=== PATIENT | female | born 1995 | race Caucasian/White ===

== ENCOUNTER 2018-08-14 12:40 | Emergency (ER) | payer SELFPAY ==
[2018-08-14 13:29] LABS: Absolute Lymphocytes (CBC) 2.1 K/uL (0.7-4.9); Absolute Monocytes 1.3 K/uL (0.1-1.3); Basophils % 0.2 % (0-1.3); Eosinophils % 0.1 % (0-4.4); Hematocrit 45.8 % (36.0-45.0); Lymphocytes % 18.8 % (15.3-44.8); MPV 10.2 fL (7.6-11.3); Protime INR 1.05; RBC Red Blood Cell Count 5.13 M/uL (3.86-4.86)
[2018-08-14] MEDS ORDERED: NA CHLORIDE 0.9% 1,000 ML ONE ×2 (13:34→14:21)
--- NOTE | 2018-08-14 13:44 | RAD REPORT ---
EXAM DESCRIPTION: Patsy Single View08/14/2018 1:38 pm CLINICAL HISTORY: Cough COMPARISON: none FINDINGS: The lungs appear clear of acute infiltrate. The heart is normal size IMPRESSION: No acute abnormalities displayed
[2018-08-14 13:51] LABS: ALT/SGPT 114 U/L (12-78); AST/SGOT 65 U/L (15-37); Albumin 4.4 g/dL (3.4-5.0); Alkaline Phosphatase 94 U/L (45-117); BUN Blood Urea Nitrogen 14 mg/dL (7-18); Bicarbonate 24 mmol/L (21-32); Bilirubin Direct < 0.1 mg/dL (0-0.2); Bilirubin Total 0.2 mg/dL (0.2-1.0); Glucose Level 94 mg/dL (74-106); Lipase 123 U/L (73-393); Magnesium 2.2 mg/dL (1.8-2.4); NT PRO-BNP 89 pg/mL (<125); Potassium 3.7 mmol/L (3.5-5.1); Protein, Total 8.3 g/dL (6.4-8.2); Sodium Level 138 mmol/L (136-145); Troponin (Emerg Dept Use Only) < 0.02 ng/mL (0.0-0.045)
--- NOTE | 2018-08-14 14:09 | RAD REPORT ---
EXAM DESCRIPTION: CT - Head Brain Wo Cont - 08/14/2018 1:59 pm CLINICAL HISTORY: Numbness COMPARISON: None. TECHNIQUE: Computed axial tomography of the head was obtained. IV contrast was not requested. All CT scans are performed using dose optimization technique as appropriate and may include automated exposure control or mA/KV adjustment according to patient size. FINDINGS: An intracranial bleed is not seen . The ventricles are normal in caliber. No extra-axial fluid collection is noted. Fluid within the sinuses/ mastoids is not seen. IMPRESSION: No acute intracranial abnormality is seen. If patient's symptoms persist MRI of the bra in would be recommended.
[2018-08-14] MEDS ORDERED: FOLIC ACID 5 MG/ML VIAL ONE (14:22)
--- NOTE | 2018-08-14 14:51 | RAD REPORT ---
EXAM DESCRIPTION: MRI - Brain Wo Cont - 08/14/2018 2:33 pm CLINICAL HISTORY: Headache and dizziness COMPARISON: August 14, 2018 cat scan TECHNIQUE: Axial, sagittal, and coronal magnetic images of the brain were obtained. Contrast was not requested FINDINGS: No abnormal signal is present within the brain. Diffusion-weighted/ADC mapping does not reveal evidence of acute infarction. The ventricles are normal caliber. An extra-axial fluid collection is not present The sinuses and mastoids are clear. IMPRESSION: Unremarkable unenhanced brain MRI
--- NOTE | 2018-08-14 14:53 | RAD REPORT ---
EXAM DESCRIPTION: MRI - MRA Head Wo Cont - 08/14/2018 2:33 pm CLINICAL HISTORY: Syncope and headaches COMPARISON: None. TECHNIQUE: Magnetic resonance angiogram was performed. 3D MIPS reconstruction performed FINDINGS: The anterior cerebral, middle cerebral, posterior cerebral, distal internal carotid and ba silar arteries do not demonstrate a significant stenosis. origin left posterior cerebral artery An aneurysm is not displayed. IMPRESSION: Unremarkable MRA brain.
--- NOTE | 2018-08-14 14:56 | EDPHYS ---
Physician Documentation [facility] Name: Heather Mueller Age: 22 yrs Sex: Female : 1995 Arrival Date: 08/14/2018 Time: 12:46 Bed 6 Private MD: AUTUMN Physician Chato Faye HPI: 08/14 13:51 This 22 yrs old Female presents to ER via Ambulatory with complaints of roderick Facial numbness, Numbness Of Arm. 13:51 The patient or guardian complains of. roderick 13:51 The patient complains of pain to the top of head, forehead, left temporal area and roderick right temporal area. The patient describes the headache as aching. Onset: The symptoms/episode began/occurred last night. The patient presents with a history of heart racing, heart skipping beats. Context: The symptoms occur at rest. Onset: The symptoms/episode began/occurred yesterday. The patient's problem is reported as dysphasia. Onset: The symptoms/episode began/occurred this morning. STAFF THERAPIST: 12:53 LMP 07/20/2018 hj Historical: - Allergies: 12:53 No Known Allergies; hj - PMHx: 12:53 None; hj - PSHx: 12:53 arm surgery; ; hj - Immunization history:: Adult Immunizations up to date. - Social history:: Smoking status: Patient uses tobacco products, smokes one pack cigarettes per day. Patient uses alcohol, occasionally. Patient/guardian denies using street drugs, IV drugs. - Ebola Screening: : No symptoms or risks identified at this time. - Family history:: not pertinent. ROS: 13:51 Constitutional: Negative for fever, chills, and weight loss, Eyes: Negative for injury, roderick pain, redness, and discharge, ENT: Negative for injury, pain, and discharge, Neck: Negative for injury, pain, and swelling, Respiratory: Negative for shortness of breath, cough, wheezing, and pleuritic chest pain, Abdomen/GI: Negative for abdominal pain, nausea, vomiting, diarrhea, and constipation, Back: Negative for injury and pain, : Negative for injury, bleeding, discharge, and swelling, MS/Extremity: Negative for injury and deformity, Skin: Negative for injury, rash, and discoloration, Psych: Negative for depression, anxiety, suicide ideation, homicidal ideation, and hallucinations, Allergy/Immunology: Negative for hives, rash, and allergies, Endocrine: Negative for neck swelling, polydipsia, polyuria, polyphagia, and marked weight changes. 13:51 Cardiovascular: Positive for palpitations. 13:51 Neuro: Positive for dizziness, headache, speech changes. Exam: 13:51 Constitutional: This is a well developed, well nourished patient who is awake, alert, roderick and in no acute distress. Head/Face: Normocephalic, atraumatic. Eyes: Pupils equal round and reactive to light, extra-ocular motions intact. Lids and lashes normal. Conjunctiva and sclera are non-icteric and not injected. Cornea within normal limits. Periorbital areas with no swelling, redness, or edema. ENT: Nares patent. No nasal discharge, no septal abnormalities noted. Tympanic membranes are normal and external auditory canals are clear. Oropharynx with no redness, swelling, or masses, exudates, or evidence of obstruction, uvula midline. Mucous membranes moist. Neck: Trachea midline, no thyromegaly or masses palpated, and no cervical lymphadenopathy. Supple, full range of motion without nuchal rigidity, or vertebral point tenderness. No Meningismus. Chest/axilla: Normal chest wall appearance and motion. Nontender with no deformity. No lesions are appreciated. Cardiovascular: Regular rate and rhythm with a normal S1 and S2. No gallops, murmurs, or rubs. Normal PMI, no JVD. No pulse deficits. Respiratory: Lungs have equal breath sounds bilaterally, clear to auscultation and percussion. No rales, rhonchi or wheezes noted. No increased work of breathing, no retractions or nasal flaring. Abdomen/GI: Soft, non-tender, with normal bowel sounds. No distension or tympany. No guarding or rebound. No evidence of tenderness throughout. Back: No spinal tenderness. No costovertebral tenderness. Full range of motion. Female : Normal external genitalia. Skin: Warm, dry with normal turgor. Normal color with no rashes, no lesions, and no evidence of cellulitis. MS/ Extremity: Pulses equal, no cyanosis. Neurovascular intact. Full, normal range of motion. Neuro: Awake and alert, GCS 15, oriented to person, place, time, and situation. Cranial nerves II-XII grossly intact. Motor strength 5/5 in all extremities. Sensory grossly intact. Cerebellar exam normal. Normal gait. Psych: Awake, alert, with orientation to person, place and time. Behavior, mood, and affect are within normal limits. 13:53 Radiologist reports: neg, see report roderick 14:36 Cardiovascular: Rate: normal, Rhythm: regular, Pulses: no pulse deficits are roderick appreciated, Heart sounds: normal, Edema: is not appreciated, JVD: is not appreciated. 14:36 Musculoskeletal/extremity: DVT Exam: No signs of deep vein thrombosis. no pain, no swelling, no tenderness, negative Homans' sign noted on exam, no appreciated bluish discoloration, no erythema, no increased warmth. Vital Signs: 12:53 BP 151 / 87; Pulse 133; Resp 18; Temp 99.3(O); Pulse Ox 98% on R/A; Weight 72.57 kg; hj Height 5 ft. 5 in. (165.10 cm); Pain 5/10; 13:37 BP 134 / 91; Pulse 128 MON; Resp 22; Pulse Ox 99% on R/A; sv 14:38 BP 136 / 87; Pulse 119; Resp 20; Temp 97.8(TE); Pulse Ox 100% on R/A; mh5 15:27 BP 130 / 76; Pulse 99; Resp 18; Temp 98; Pulse Ox 99% ; rv 12:53 Body Mass Index 26.62 (72.57 kg, 165.10 cm) hj 13:37 Sinus tachycardia sv MDM: 12:57 Patient medically screened. [facility] 13:53 Data reviewed: vital signs, nurses notes, lab test result(s), EKG, radiologic studies, [facility] CT scan, MRI, plain films. 08/14 13:03 Order name: Basic Metabolic Panel; Complete Time: 14:35 [facility] 08/14 13:03 Order name: CBC with Diff; Complete Time: 14:35 [facility] 08/14 14:45 Interpretation: MCV 89.3. [facility] 08/14 13:03 Order name: LFT's; Complete Time: 14:35 [facility] 08/14 13:03 Order name: Magnesium; Complete Time: 14:35 [facility] 08/14 13:03 Order name: NT PRO-BNP; Complete Time: 14:35 [facility] 08/14 13:03 Order name: PT-INR; Complete Time: 14:35 [facility] 08/14 13:03 Order name: Troponin (emerg Dept Use Only); Complete Time: 14:35 [facility] 08/14 13:03 Order name: XRAY Chest (1 view); Complete Time: 14:35 [facility] 08/14 13:03 Order name: Lipase; Complete Time: 14:35 [facility] 08/14 13:03 Order name: CT Head Brain wo Cont [facility] 08/14 13:03 Order name: Urine Drug Screen [facility] 08/14 13:18 Order name: Glucose, Ancillary Testing; Complete Time: 14:35 EDMS 08/14 15:14 Order name: Urine Dipstick--Ancillary (enter results) 08/14 15:14 Order name: Urine --Ancillary (enter results) 08/14 13:03 Order name: EKG; Complete Time: 13:06 [facility] 08/14 13:03 Order name: Cardiac monitoring; Complete Time: 13:21 [facility] 08/14 13:03 Order name: EKG - Nurse/Tech; Complete Time: 13:21 [facility] 08/14 13:03 Order name: IV Saline Lock; Complete Time: 13:21 [facility] 08/14 13:03 Order name: Labs collected and sent; Complete Time: 13:21 [facility] 08/14 13:03 Order name: O2 Per Protocol; Complete Time: 13:21 [facility] 08/14 13:03 Order name: O2 Sat Monitoring; Complete Time: 13:21 [facility] 08/14 14:08 Order name: Brain Wo Cont; Complete Time: 14:54 EDMS 08/14 14:12 Order name: MRA Head Wo Cont; Complete Time: 14:54 EDMS 08/14 14:23 Order name: CT; Complete Time: 14:35 EDMS Administered Medications: 13:21 Drug: NS 0.9% 1000 ml Route: IV; Rate: 1 bolus; Site: left antecubital; sv 14:48 Follow up: Response: No adverse reaction; IV Status: Completed infusion; IV Intake: sv 1000ml 14:48 Drug: NS 0.9% 1000 ml Route: IV; Rate: 1 bolus; Site: right antecubital; sv 15:31 Follow up: IV Status: Completed infusion rv 14:48 Drug: foLIC Acid 1 mg Route: IVPB; Site: right antecubital; sv 15:30 Follow up: IV Status: Completed infusion rv Point of Care Testing: Blood Glucose: 13:13 Blood Glucose: 95 mg/dL; sv Ranges: Critical Glucose Levels:Adult <50 mg/dl or >400 mg/dl <40 mg/dl or >180 mg/dl Disposition: 08/14/18 14:55 Discharged to Home. Impression: Headache, Weakness, Tachycardia, unspecified. - Condition is Stable. - Discharge Instructions: General Headache Without Cause, Weakness, Weakness, [id number], General Headache Without Cause, [id number], Sinus Tachycardia. - Prescriptions for Folic Acid 1 mg Oral Tablet - take 1 tablet by ORAL route once daily; 30 tablet. - Medication Reconciliation Form, Thank You Letter, Antibiotic Education, Prescription Opioid Use form. - Follow up: Private Physician; When: 2 - 3 days; Reason: Recheck today's complaints, Continuance of care, Re-evaluation by your physician. Follow up: Delmar Prater; When: 2 - 3 days; Reason: Recheck today's complaints, Continuance of care, Re-evaluation by your physician. - Problem is new. - Symptoms have improved. Signatures: Dispatcher [employer] [facility] Jemma Strong, RN RN Chato Taylor MD MD cha Joaquin, Henry, RN RN hj Bryan Whitten RN RN rv Corrections: (The following items were deleted from the chart) 14:08 13:53 MR STROKE PROTOCOL+MRI.RAD.BRZ ordered. [facility] EDAR 14:11 13:53 Head Angio+CT.RAD.BRZ ordered. [facility] EDAR 15:30 14:55 08/14/2018 14:55 Discharged to Home. Impression: Headache; Weakness; Tachycardia, rv unspecified. Condition is Stable. Discharge Instructions: General Headache Without Cause, Weakness, Weakness, Jjjp-[id number], General Headache Without Cause, [id number]-[id number], Sinus Tachycardia. Prescriptions for Folic Acid 1 mg Oral Tablet - take 1 tablet by ORAL route once daily; 30 tablet. and Forms are Medication Reconciliation Form, Thank You Letter, Antibiotic Education, Prescription Opioid Use. Follow up: Private Physician; When: 2 - 3 days; Reason: Recheck today's complaints, Continuance of care, Re-evaluation by your physician. Follow up: Delmar Prater; When: 2 - 3 days; Reason: Recheck today's complaints, Continuance of care, Re-evaluation by your physician. Problem is new. Symptoms have improved. roderick
--- NOTE | 2018-08-14 14:56 | ER ---
Nurse's Notes [facility] Name: Heather Mueller Age: 22 yrs Sex: Female : 1995 Arrival Date: 08/14/2018 Time: 12:46 Bed 6 Private MD: Diagnosis: Headache;Weakness;Tachycardia, unspecified Presentation: 08/14 12:50 Presenting complaint: Patient states: this morning, around 6 am, i started feeling both hj my arms are numb and shaky, both side of my face are numb, denies weakness, when i goggled it im just concern that i might have mini strokes; denies chest pain, reports nausea and abd cramps;. Transition of care: patient was not received from another setting of care. Onset of symptoms was August 14, 2018. Risk Assessment: Do you want to hurt yourself or someone else? Patient reports no desire to harm self or others. Initial Sepsis Screen: Does the patient meet any 2 criteria? No. Patient's initial sepsis screen is negative. Does the patient have a suspected source of infection? No. Patient's initial sepsis screen is negative. Care prior to arrival: None. 12:50 Method Of Arrival: Ambulatory 12:50 Acuity: GALINDO 3 hj 13:10 Acuity: GALINDO 2 sv LINOTYPER: 12:53 LMP 07/20/2018 Historical: - Allergies: 12:53 No Known Allergies; hj - PMHx: 12:53 None; hj - PSHx: 12:53 arm surgery; ; hj - Immunization history:: Adult Immunizations up to date. - Social history:: Smoking status: Patient uses tobacco products, smokes one pack cigarettes per day. Patient uses alcohol, occasionally. Patient/guardian denies using street drugs, IV drugs. - Ebola Screening: : No symptoms or risks identified at this time. - Family history:: not pertinent. Screenin:13 Abuse screen: Denies threats or abuse. Denies injuries from another. Nutritional sv screening: No deficits noted. Tuberculosis screening: No symptoms or risk factors identified. Fall Risk None identified. Assessment: 13:10 General: Appears in no apparent distress. uncomfortable, well developed, Behavior is sv calm, cooperative, appropriate for age. General: Reports drinking about 5-6 big cups of soda a day. Pain: Denies pain. Neuro: Level of Consciousness is awake, alert, obeys commands, Oriented to person, place, time, situation, Moves all extremities. Full function Gait is steady, Speech is normal, Reports dizziness, having a frontal headache last night and took some Tylenol and headache went away. Reports BUE and bilateral cheek, lip, chin numbness this morning at 0600, lasted for about a minute and then went away.. Denies weakness blurred vision numbness headache. Respiratory: Airway is patent Respiratory effort is even, unlabored, Respiratory pattern is regular, symmetrical. Derm: Skin is pink, warm \T\ dry. Musculoskeletal: Range of motion: intact in all extremities. 14:49 Reassessment: Patient appears in no apparent distress at this time. No changes from sv previously documented assessment. Patient and/or family updated on plan of care and expected duration. Pain level reassessed. Patient is alert, oriented x 3, equal unlabored respirations, skin warm/dry/pink. Pt returned from MRI, waiting on results. Vital Signs: 12:53 BP 151 / 87; Pulse 133; Resp 18; Temp 99.3(O); Pulse Ox 98% on R/A; Weight 72.57 kg; hj Height 5 ft. 5 in. (165.10 cm); Pain 5/10; 13:37 BP 134 / 91; Pulse 128 MON; Resp 22; Pulse Ox 99% on R/A; sv 14:38 BP 136 / 87; Pulse 119; Resp 20; Temp 97.8(TE); Pulse Ox 100% on R/A; mh5 15:27 BP 130 / 76; Pulse 99; Resp 18; Temp 98; Pulse Ox 99% ; rv 12:53 Body Mass Index 26.62 (72.57 kg, 165.10 cm) hj 13:37 Sinus tachycardia sv ED Course: 12:46 Patient arrived in ED. mr 12:52 Triage completed. hj 12:55 Arm band placed on left wrist. hj 12:57 Chato Faye MD is Attending Physician. [facility] 13:05 Jemma Strong, TROY is Primary Nurse. sv 13:08 Patient has correct armband on for positive identification. Placed in gown. Bed in low mh5 position. Call light in reach. Side rails up X 1. Warm blanket given. monitoring and evaluation advisor on. Pulse ox on. NIBP on. 13:10 EKG done, by biology specimen technician. reviewed by Chato Faye MD. sm3 13:13 Initial lab(s) drawn, by me, sent to lab. Inserted saline lock: 20 gauge in right sv antecubital area, using aseptic technique. Blood collected. Flushed right antecubital with 5 ml normal saline. 13:21 X-ray completed. Portable x-ray completed in exam room. Patient tolerated procedure jb2 well. 13:23 Awaiting ED provider evaluation. sv 13:39 XRAY Chest (1 view) In Process Unspecified. EDMS 14:27 Brain Wo Cont In Process Unspecified. EDMS 14:27 MRA Head Wo Cont In Process Unspecified. EDMS 14:55 Delmar Prater MD is Referral Physician. roderick 15:03 Report given to Bryan SIMMONS. sv 15:08 Primary Nurse role handed off by Jemma Strong RN sv 15:19 Bryan Whitten, TROY is Primary Nurse. rv 15:28 No provider procedures requiring assistance completed. IV discontinued, intact, rv bleeding controlled, No redness/swelling at site. Pressure dressing applied. Administered Medications: 13:21 Drug: NS 0.9% 1000 ml Route: IV; Rate: 1 bolus; Site: left antecubital; sv 14:48 Follow up: Response: No adverse reaction; IV Status: Completed infusion; IV Intake: sv 1000ml 14:48 Drug: NS 0.9% 1000 ml Route: IV; Rate: 1 bolus; Site: right antecubital; sv 15:31 Follow up: IV Status: Completed infusion rv 14:48 Drug: foLIC Acid 1 mg Route: IVPB; Site: right antecubital; sv 15:30 Follow up: IV Status: Completed infusion rv Point of Care Testing: Blood Glucose: 13:13 Blood Glucose: 95 mg/dL; sv Ranges: Intake: 14:48 IV: 1000ml; Total: 1000ml. sv Outcome: 14:55 Discharge ordered by . roderick 15:29 Discharged to home ambulatory. rv 15:29 Condition: good 15:29 Discharge instructions given to patient, Instructed on discharge instructions, follow up and referral plans. medication usage, Demonstrated understanding of instructions, follow-up care, medications, Prescriptions given X 1. 15:30 Patient left the ED. rv Signatures: Dispatcher [employer] EDMS Ligia Jemma, Chato Pink RN, MD MD cha Rivera, Li mr Jose Eduardo, Papo jb2 Prem Hanks RN RN hj Martinez, Maria [facility] Susan Larsen 3 Bryan Whitten RN RN rv Corrections: (The following items were deleted from the chart) 12:55 12:53 Pulse 133bpm; Resp 18bpm; Pulse Ox 98% RA; Temp 99.3F Oral; 72.57 kg; Height 5 hj ft. 5 in.; BMI: 26.6; Pain 5/10; hj
[2018-08-14 15:45] LABS: Barbiturates NEGATIVE (NEGATIVE); Benzodiazepines NEGATIVE (NEGATIVE); Cocaine NEGATIVE (NEGATIVE); METHAMPHETAM POSITIVE (NEGATIVE); Methadone NEGATIVE (NEGATIVE); Opiates NEGATIVE (NEGATIVE); Phencyclidine NEGATIVE (NEGATIVE); THC Cannibis NEGATIVE (NEGATIVE)
[2018-08-14 15:46] VITALS: BP 130/76; TEMP 98; O2SAT 99
[2018-08-14 15:48] LABS: Urine Blood NEGATIVE (NEG); Urine Glucose NEGATIVE (NEG); Urine Protein NEGATIVE (NEG); Urine pH 5.5 (5.0-7.0)
--- NOTE | 2018-08-15 06:19 | EKG ---
Test Date: 2018-08-14 Test Time: 13:07:29 Order Builder Loader: FERCHO MEASUREMENT RESULTS: Intervals: Rate: 132 MO: 146 QRSD: 70 QT: 306 QTc: 453 [place]: P: 78 MO: 146 QRS: 77 T: 38 INTERPRETIVE STATEMENTS: Sinus tachycardia Right atrial enlargement Borderline ECG No previous ECG available for comparison Electronically Signed On 08-15-18 06:17:25 CDT by Brent Singh
== END 2018-08-14 15:30 | disposition home or self-care (01) ==
LOC: ER 12:40
DX: R53.1 Weakness (principal); R00.0 Tachycardia, unspecified; F17.210 Nicotine dependence, cigarettes, uncomplicated
CPT/HCPCS: 36415; 70450; 70544; 70551; 71045; 80048; 80076; 80307; 81003; 81025; 82962; 83690; 83735; 83880; 84484; 85025; 85610; 93005; 96361; 96365; 99285; J7030

== ENCOUNTER 2018-10-22 01:13 | Emergency (ER) | payer SELFPAY ==
--- NOTE | 2018-10-22 02:16 | ER ---
Nurse's Notes [facility] Name: Heather Mueller Age: 23 yrs Sex: Female : 1995 Arrival Date: 10/22/2018 Time: 01:16 Bed 15 Private MD: Diagnosis: Low back pain Presentation: 10/22 01:24 Presenting complaint: Patient states: Pt complaining of right sided back pain, reports ea it started yesterday morning and has not resolved since. Denies pain with urination. Transition of care: patient was not received from another setting of care. Onset of symptoms was October 22, 2018. Risk Assessment: Do you want to hurt yourself or someone else? Patient reports no desire to harm self or others. Initial Sepsis Screen: Does the patient meet any 2 criteria? No. Patient's initial sepsis screen is negative. Does the patient have a suspected source of infection? No. Patient's initial sepsis screen is negative. Care prior to arrival: None. 01:24 Method Of Arrival: Ambulatory ea 01:24 Acuity: GALINDO 5 ea Triage Assessment: 01:30 General: Appears in no apparent distress. comfortable, Behavior is calm, cooperative, cc3 appropriate for age. Pain: Complains of pain in back Quality of pain is described as aching. EENT: No signs and/or symptoms were reported regarding the EENT system. Neuro: Level of Consciousness is awake, alert, obeys commands, Oriented to person, place, time, situation, Appropriate for age. Cardiovascular: Denies chest pain, Capillary refill < 3 seconds Patient's skin is warm and dry. Respiratory: Airway is patent Respiratory effort is even, unlabored, Respiratory pattern is regular, symmetrical. GI: Abdomen is flat. : No signs and/or symptoms were reported regarding the genitourinary system. Derm: Skin is intact, is healthy with good turgor, Skin is pink, warm \T\ dry. normal. Musculoskeletal: Circulation, motion, and sensation intact. Range of motion: intact in all extremities. ADVANCE AGENT: 01:31 LMP 10/22/2018 ea Historical: - Allergies: 01:30 No Known Allergies; ea - Home Meds: 01:30 None [Active]; ea - PMHx: 01:30 None; ea - PSHx: 01:30 arm surgery; ; ea - Immunization history:: Adult Immunizations up to date. - Social history:: Smoking status: Patient/guardian denies using tobacco. - Ebola Screening: : No symptoms or risks identified at this time. Screenin:28 Abuse screen: Denies threats or abuse. Nutritional screening: No deficits noted. ea Tuberculosis screening: No symptoms or risk factors identified. Fall Risk None identified. Assessment: 01:27 General: see triage assessment. Neuro: Level of Consciousness is awake, alert, obeys cc3 commands, Oriented to person, place, time, situation, Appropriate for age. 02:05 Reassessment: Patient appears in no apparent distress at this time. Patient and/or cc3 family updated on plan of care and expected duration. Pain level reassessed. Patient is alert, oriented x 3, equal unlabored respirations, skin warm/dry/pink. Dr. Bellamy medically screened the patient and discharged her home. Patient left ER vitally stable and ambulatory with her significant other. No valuables left in the patient's room. Vital Signs: 01:27 BP 133 / 97; Pulse 111; Resp 18 S; Temp 98.2(O); Pulse Ox 100% ; Weight 63.5 kg (R); cc3 Height 5 ft. 5 in. (165.10 cm) (R); 01:27 Body Mass Index 23.30 (63.50 kg, 165.10 cm) cc3 ED Course: 01:16 Patient arrived in ED. ds1 01:25 Cariot Schmitt is Primary Nurse. cc3 01:28 Triage completed. ea 01:30 Patient has correct armband on for positive identification. Bed in low position. Call ea light in reach. 01:30 Arm band placed on right wrist. Patient placed in an exam room, on a stretcher, on ea pulse oximetry. 01:41 Minor Bellamy MD is Attending Physician. tw4 02:05 No provider procedures requiring assistance completed. Patient did not have IV access cc3 during this emergency room visit. Administered Medications: No medications were administered Outcome: 02:05 Following a medical screening exam, the patient was provided information regarding ea alternative care sites and resources available per registration personnel. 02:05 Medical screen evaluation completed per provider. cc3 02:05 Condition: stable 02:14 Discharge ordered by . tw4 02:17 Patient left the ED. cc3 Signatures: Becky Garcia ds1 Zunilda Reagan RN RN Minor Rosenberg MD MD tw4 Carito Schmitt cc3
--- NOTE | 2018-10-22 02:16 | EDPHYS ---
Physician Documentation [facility] Name: Heather Mueller Age: 23 yrs Sex: Female : 1995 Arrival Date: 10/22/2018 Time: 01:16 Bed 15 Private MD: ED Physician Minor Bellamy HPI: 10/22 01:51 This 23 yrs old Female presents to ER via Ambulatory with complaints of Back tw4 Pain. 01:51 The patient presents with pain that is acute, with no known mechanism of injury. The tw4 symptoms are located in the low back, right mid back. Onset: The symptoms/episode began/occurred yesterday. The pain does not radiate. Associated signs and symptoms: The patient has no apparent associated signs or symptoms. Severity of symptoms: At their worst the symptoms were mild, in the emergency department the symptoms are unchanged. 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 - Social history:: Smoking status: Patient/guardian denies using tobacco. - Ebola Screening: : No symptoms or risks identified at this time. ROS: 01:51 Constitutional: Negative for fever, chills, and weight loss, Eyes: Negative for injury, tw4 pain, redness, and discharge, Cardiovascular: Negative for chest pain, palpitations, and edema, Respiratory: Negative for shortness of breath, cough, wheezing, and pleuritic chest pain, Abdomen/GI: Negative for abdominal pain, nausea, vomiting, diarrhea, and constipation, MS/Extremity: Negative for injury and deformity, Skin: Negative for injury, rash, and discoloration, Neuro: Negative for headache, weakness, numbness, tingling, and seizure. 01:51 Back: Positive for pain at rest. Exam: 01:51 Constitutional: This is a well developed, well nourished patient who is awake, alert, tw4 and in no acute distress. Head/Face: Normocephalic, atraumatic. Chest/axilla: Normal chest wall appearance and motion. Nontender with no deformity. No lesions are appreciated. Cardiovascular: Regular rate and rhythm with a normal S1 and S2. No gallops, murmurs, or rubs. Normal PMI, no JVD. No pulse deficits. Respiratory: Lungs have equal breath sounds bilaterally, clear to auscultation and percussion. No rales, rhonchi or wheezes noted. No increased work of breathing, no retractions or nasal flaring. Abdomen/GI: Soft, non-tender, with normal bowel sounds. No distension or tympany. No guarding or rebound. No evidence of tenderness throughout. Back: No spinal tenderness. No costovertebral tenderness. Full range of motion. MS/ Extremity: Pulses equal, no cyanosis. Neurovascular intact. Full, normal range of motion. Neuro: Awake and alert, GCS 15, oriented to person, place, time, and situation. Cranial nerves II-XII grossly intact. Motor strength 5/5 in all extremities. Sensory grossly intact. Cerebellar exam normal. Normal gait. Vital Signs: 01:27 BP 133 / 97; Pulse 111; Resp 18 S; Temp 98.2(O); Pulse Ox 100% ; Weight 63.5 kg (R); cc3 Height 5 ft. 5 in. (165.10 cm) (R); 01:27 Body Mass Index 23.30 (63.50 kg, 165.10 cm) cc3 MDM: 01:41 Patient medically screened. tw4 02:13 Data reviewed: vital signs, nurses notes. Medical screen evaluation completed. EMTALA tw4 emergency medical condition absent. Special discussion: I discussed with the patient/guardian in detail that at this point there is no indication for admission to the hospital. It is understood, however, that if the symptoms persist or worsen the patient needs to return immediately for re-evaluation. Administered Medications: No medications were administered Disposition: 10/22/18 02:14 Discharged to Home. Impression: Low back pain. - Condition is Stable. - Discharge Instructions: Back Pain, Adult. - Medication Reconciliation Form, Thank You Letter, Antibiotic Education, Prescription Opioid Use form. - Follow up: Private Physician; When: Upon discharge from the Emergency Department; Reason: If symptoms return, Recheck today's complaints, Continuance of care. - Problem is new. - Symptoms are unchanged. Signatures: Reagan, TROY Mauro RN, ea, Terrence, MD MD tw4 Carito Schmitt cc3 Corrections: (The following items were deleted from the chart) 02:17 02:14 10/22/2018 02:14 Discharged to Home. Impression: Low back pain. Condition is cc3 Stable. Forms are Medication Reconciliation Form, Thank You Letter, Antibiotic Education, Prescription Opioid Use. Follow up: Private Physician; When: Upon discharge from the Emergency Department; Reason: If symptoms return, Recheck today's complaints, Continuance of care. Problem is new. Symptoms are unchanged. tw4
[2018-10-22 02:56] VITALS: BP 133/97; TEMP 98.2; O2SAT 100
== END 2018-10-22 02:17 | disposition home or self-care (01) ==
LOC: ER 01:13
DX: M54.5 Low back pain (principal)
CPT/HCPCS: 99282